=== PATIENT | female | born 1960 | race Caucasian/White ===

== ENCOUNTER → 2017-02-20 | Outpatient (CLI) | payer BC ==
[~2017-02-20] MED LIST: ANTIBIOTIC; PERCOCET
--- NOTE | ~2017-02-20 | MY11 ---
[facility] RADIOLOGY TEXT RESULTS PATIENT: ELIANA COOK LOCATION: [facility] : 60 UNIT #: [id number] AGE: [address]: Cezar Velásquez MD SEX: F ORDER DR: [id number] [address] [address] [id number] O MR#: [id number] Acc #: [id number] NAME: ELIANA COOK : 1960 SEX: F STUDY DATE/TIME: 02/20/2017 15:11 UNIT: [facility] ROOM: STUDY DESCRIPTION: MY Mammogram Screening Dig Jude Attending Physician: Cezar Velásquez M.D. Referring Physician: Cezar Velásquez M.D. Ordering Physician: Cezar Velásquez M.D. Primary Care Physician: Cezar Velásquez M.D. MEDICAL IMAGING REPORT This report is preliminary unless electronic signature is present. EXAM Bilateral digital screening mammogram with CAD DATE 02/20/2017 HISTORY 56-year-old female with family history of breast cancer in a sister at the age of 56. No personal history of breast cancer or current complaints. COMPARISON Bilateral screening mammogram performed at [facility] in [place], [place] 02/09/2016, 02/04/2014, 02/05/2013. FINDINGS CC and MLO views were obtained of each breast utilizing digital technique and reviewed with an FDA-approved CAD device. Scattered fibroglandular densities are present bilaterally. No suspicious nodule, architectural distortion or clustered microcalcification is seen. IMPRESSION 1. BIRADS 1. Negative screening mammogram. Routine screening mammogram is recommended in 1 year. Patients over the age of 40 are entered into a reminder system with target due date for the next mammogram. A result letter will also be sent to the patient. BIRADS: 1, negative [facility] RADIOLOGY TEXT RESULTS PATIENT: ELIANA COOK LOCATION: [facility] : 60 UNIT #: [id number] AGE: [address]: Cezar Velásquez MD SEX: F ORDER DR: Dictated by... Daxa Guevara M.D. THIS IS AN ELECTRONICALLY VERIFIED REPORT Daxa Guevara M.D. at 02/25/2017 8:44 AM BELLE/zaid TD: 02/20/2017 22:25 JOB #: [id number] MEDICAL IMAGING REPORT Page 1 of 1
== END | disposition home or self-care (01) ==
LOC: SMAM 14:22
DX: Z12.31 Encounter for screening mammogram for malignant neoplasm of breast (principal); Z80.3 Family history of malignant neoplasm of breast
CPT/HCPCS: G0202